=== PATIENT | male | born 1995 | race African-American/Black ===

== ENCOUNTER 2018-04-25 07:02 | Emergency (ER) | payer MEDICAID ==
[~2018-04-25] VITALS: Ht 177.8 cm; Wt 95.3 kg
[2018-04-25 07:30] VITALS: BP 136/78
--- NOTE | 2018-04-25 07:30 | NUR ---
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 Pt denied chest pain but c/o headache 10/10 radiates to posterior neck. Pt also c/o Rt ankle pain from the fall which no edema or bruise noted. No bump on head and no bruise on posterior neck noted. Pt refused to verbalize history with detaile to nurse and doctor as stating "I don't know. I lost conscious for a while I just don't remember how it happened." Pt denied any witness present. Per pt, his brother got a phone call after the incident and he took pt to ER. Pt AAO x4, fatigued. Skin intact but the condition of nails and clothing demonstrating poor hygiene. 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 Pt denied chest pain but c/o headache 10/10 radiates to posterior neck. Pt also c/o Rt ankle pain from the fall which no edema or bruise noted. No bump on head and no bruise on posterior neck noted. Pt refused to verbalize history with details to nurse and doctor as stating "I don't know. I lost conscious for a while I just don't remember how it happened." Pt denied any witness present at the scene. Per pt, his brother got a phone call after the incident and took pt to ER. Pt AAO x4, fatigued. Skin intact but the condition of nails and clothing demonstrating poor hygiene. 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 Pt refused to report how tall the fall point was. Pt denied chest pain but c/o headache 10/10 radiates to posterior neck. Pt also c/o Rt ankle pain from the fall which no edema or bruise noted. No bump on head and no bruise on posterior neck noted. Pt refused to verbalize history with detaile to nurse and doctor as stating "I don't know. I lost conscious for a while I just don't remember how it happened." Pt denied any witness present. Per pt, his brother got a phone call after the incident and he took pt to ER. Pt AAO x4, fatigued. Skin intact but the condition of nails and clothing demonstrating poor hygiene.
[2018-04-25] MEDS ORDERED: ADVIL200 M2 ORAL (07:33)
--- NOTE | 2018-04-25 07:53 | Emergency Room Report ---
History of Present Illness General Chief Complaint: Multiple Trauma/Fall Source: Patient Present Illness HPI This patient states that he was on a high plank and fell off. He states that this was possibly a story in height. He is not sure how he fell but states that per report of a witness had loss of consciousness. He complains of headache, neck pain and right foot pain. He states that the pain is severe with weightbearing on the right foot. He denies chest pain, back pain or abdominal pain. He has no other musculoskeletal pain. He denies recent illness. Denies shortness of breath. He denies blurry vision. He denies weakness. He denies tingling or numbness. He states that he does have a history of intermittent atrial fibrillation. He does not take any type of medication. He does not take aspirin, although, he states he is supposed to. He states he rarely has issues with his atrial fibrillation. He admits to occasional alcohol use and marijuana use. He denies tobacco or illicit drug use. He has no other complaints. Allergies: Coded Allergies: No Known Allergies (Unverified , 04/25/18) Patient History Past Medical History: see triage record, AFib Past Surgical History: none Social History: Reports: alcohol use, drug use; Denies: smoking Reviewed Nursing Documentation: PMH: Agreed; PSxH: Agreed Nursing Documentation-PMH Past Medical History: No History, Except For Hx Cardiac Problems: No Hx Hypertension: No Hx Pacemaker: No Hx Asthma: No Hx COPD: No Hx Diabetes: No Hx Cancer: No Hx Gastrointestinal Problems: No Hx Dialysis: No History Of Psychiatric Problem: No Hx Neurological Problems: No Hx Cerebrovascular Accident: No Hx Seizures: No Review of Systems All Other Systems: negative except mentioned in HPI Physical Exam Vital Signs Date Time Temp Pulse Resp B/P (MAP) Pulse Ox O2 Delivery O2 Flow Rate FiO2 04/25/18 07:07 97.9 90 16 108/75 95 Room Air Sp02 EP Interpretation: reviewed, normal General Appearance: no apparent distress, alert, GCS 15, non-toxic Head: normocephalic, atraumatic Eyes: bilateral eye normal inspection, bilateral eye PERRL ENT: hearing grossly normal, normal pharynx, no angioedema, normal voice Neck: full range of motion, supple/symm/no masses, tender lateral Respiratory: chest non-tender, lungs clear, normal breath sounds, speaking full sentences Cardiovascular #1: regular rate, rhythm, no edema Gastrointestinal: normal bowel sounds, non tender, soft, non-distended, no guarding, no rebound Rectal: deferred Musculoskeletal: back normal, other - R. foot TTP medially along arch. R. ankle pain w/ ROM. PT unable to tolerate exam. Neurologic: alert, oriented x3, responsive, motor strength/tone normal, sensory intact, speech normal Psychiatric: judgement/insight normal, memory normal, mood/affect normal, no suicidal/homicidal ideation Skin: normal color, no rash, warm/dry, well hydrated Medical Decision Making Diagnostic Impression: Primary Impression: Fall Additional Impressions: Closed head injury with brief loss of consciousness Ankle sprain Foot sprain ER Course This patient has a clinical presentation consistent with closed head injury and possible concussion. The patient had a closed head injury with a normal CT head. CT of the cervical spine also shows no acute findings. There are no red flags on physical exam that would make me concerned for an occult bleed or other traumatic injuries such as intrathoracic or intra-abdominal. X-rays of the right ankle and right foot are negative for fracture. The patient was given an Aircast and crutches for comfort. Overall, the patient had a benign evaluation. The patient is alert and articulate without localizing neurologic findings. The patient was educated on concussion precautions. The patient was given return precautions and followup instructions. Other X-Ray Diagnostic Results Other X-Ray Diagnostic Results : X-Ray ordered: R. foot, R. ankle xrays # of Views/Limited Vs Complete: Complete Indication: Pain EP Interpretation: No Interpretation: no fractures Impression: No acute disease Electronically Signed by: Allison Olvera DO CT/MRI/US Diagnostic Results CT/MRI/US Diagnostic Results : Imaging Test Ordered: CT head, CT c-spine Impression No acute findings. Specifically no intracranial bleed, mass effect or edema. See official report. No C-spine fracture. Normal alignment. See official report. Last Vital Signs Date Time Temp Pulse Resp B/P (MAP) Pulse Ox O2 Delivery O2 Flow Rate FiO2 04/25/18 07:07 97.9 90 16 108/75 95 Room Air Status: improved Disposition: HOME, SELF-CARE Condition: Improved Allison Olvera DO Apr 25, 2018 07:53
--- NOTE | 2018-04-25 08:19 | NUR ---
ED Nurse Note: Pt was brought to x-ray room. EKG will be done when pt comes back.
--- NOTE | 2018-04-25 08:27 | Diagnostic Imaging Report ---
Indications: Head pain, status post fall with head trauma, loss of consciousness Technique: Spiral acquisitions obtained through the brain. Angled axial and coronal 5 x 5 mm slices were reconstructed. Total dose length product 1424.67 mGycm. CTDI vol(s) 70.38 mGy. Dose reduction achieved using automated exposure control Comparison: None. Findings: No acute intracranial hemorrhage or edema. No mass effect nor midline shift. Normal size ventricles and extra axial CSF spaces. Normal saavedra-white differentiation. Intact calvarium. There is bilateral ethmoid sinus mucosal disease. Impression: Negative for acute intracranial bleed or mass effect Sinus disease The CT scanner at [facility] is accredited by the [employer] and the scans are performed using protocols designed to limit radiation exposure to as low as reasonably achievable to attain images of sufficient resolution adequate for diagnostic evaluation.
--- NOTE | 2018-04-25 08:30 | NUR ---
ED Nurse Note: Came back from x-ray and EKG done at bedside.
--- NOTE | 2018-04-25 08:31 | Diagnostic Imaging Report ---
Indication: Trauma, neck pain, status post fall Technique: Spiral acquisitions obtained through the cervical spine. No IV contrast utilized. Multiplanar reconstructions were generated. Total dose length product 486.76 mGycm. CTDIvol(s) 21.88 mGy. Dose reduction achieved using automated exposure control. Comparison: none Findings: Bony alignment is normal. No prevertebral soft tissue swelling. Vertebral body heights are preserved. The disc spaces are preserved. No acute fractures. No dislocations. No significant disc bulge or protrusion, spinal stenosis, or neural foraminal stenosis is demonstrated. The included soft tissues are unremarkable Impression: Negative The CT scanner at [facility] is accredited by the [employer] and the scans are performed using protocols designed to limit radiation exposure to as low as reasonably achievable to attain images of sufficient resolution adequate for diagnostic evaluation.
[2018-04-25] MEDS ORDERED: Ketorolac 60mg Inj IM ONE (08:45)
[2018-04-25] MEDS ORDERED: IBUPROFEN800 MG ORAL (08:49)
[2018-04-25 09:11] VITALS: BP 114/75
--- NOTE | 2018-04-25 09:11 | NUR ---
ED Nurse Note: Pt was cleared to be discharged by ERMD. Splint was applied on Rt ankle without skin irritation or poor blood circulation noted. A pair of crutch was provided for height 5'10" based on pt's report. Pt demonstrated appropriate usage of crutches prior to discharge. Pt requested for CT result to turn in to his work and he was provided. Pt verbalized improved pain level which is 4/10 for headache. Pt received discharge instruction and prescription. Pt verbalized understanding. Pt ambulated out to be discharge as using crutches. ID band was removed.
--- NOTE | 2018-04-25 09:54 | Diagnostic Imaging Report ---
Indication: Pain, trauma Technique: 3 views of the right ankle Comparison: none Findings: No acute fractures. No dislocations. The joint spaces are preserved Impression: Negative
--- NOTE | 2018-04-25 10:05 | Diagnostic Imaging Report ---
Indication: Trauma, pain Technique: 3 views right right foot Comparison: none Findings: There is mild hallux valgus and metatarsus adductus, as well as mild hammertoe deformity of the second through fifth digits. No acute fractures. No dislocations. The joint spaces are preserved Impression: Negative
== END 2018-04-25 09:10 | disposition home or self-care (01) ==
LOC: EMR 07:40
DX: S06.9X9A Unspecified intracranial injury with loss of consciousness of unspecified duration, initial encounter (principal); S93.601A Unspecified sprain of right foot, initial encounter; S93.401A Sprain of unspecified ligament of right ankle, initial encounter; M54.9 Dorsalgia, unspecified; M54.2 Cervicalgia; I49.8 Other specified cardiac arrhythmias; W13.2XXA Fall from, out of or through roof, initial encounter; Y92.69 Other specified industrial and construction area as the place of occurrence of the external cause
CPT/HCPCS: 70450; 72125; 93005; 96372; 99284

== ENCOUNTER 2018-05-29 19:11 | Emergency (ER) | payer MEDICAID ==
[~2018-05-29] VITALS: Ht 177.8 cm; Wt 99.8 kg
[~2018-05-29 19:11] MED LIST: ADVIL200 M2 ORAL; IBUPROFEN800 MG ORAL
[2018-05-29] MEDS ORDERED: NKM (19:25)
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
[2018-05-29] MEDS ORDERED: IBUPROFEN600 MG ORAL (20:20)
[2018-05-29 21:00] VITALS: BP 118/76
--- NOTE | 2018-05-29 21:00 | NUR ---
ER DISCHARGE NOTE: Patient is cleared to be discharged per ERMD, pt is aox4, on room air, with stable vital signs. pt was given dc and prescription instructions, pt was able to verbalize understanding, pt id band and removed without complications. pt is able to ambulate with steady gait. pt took all belongings.
--- NOTE | 2018-05-30 10:58 | Diagnostic Imaging Report ---
Indication: Foot pain Comparison: None Findings: 3 views of the left foot were obtained. No acute fractures, malalignment, erosions or periostitis are identified. Soft tissues are unremarkable. Impression: No acute findings
== END 2018-05-29 21:00 | disposition home or self-care (01) ==
LOC: EMR 19:40
DX: S90.32XA Contusion of left foot, initial encounter (principal); V09.9XXA Pedestrian injured in unspecified transport accident, initial encounter; Y92.9 Unspecified place or not applicable
CPT/HCPCS: 99283